=== PATIENT | female | born 1955 | race Caucasian/White ===

== ENCOUNTER 2018-11-08 16:50 | Observation (INO) | payer MEDICARE ==
[~2018-11-08] VITALS: Ht 167.6 cm; Wt 57.8 kg
--- NOTE | 2018-11-08 16:54 | NUR ---
PT BROUGHT BACK IMMEDIATELY TO ROOM PER W/C
--- NOTE | 2018-11-08 17:08 | NUR ---
RADIOLOGY DEPT/CT ADVISED THAT I-STAT IS 0.[address] MAIER.
[2018-11-08 17:15] LABS: GFR > 60 ML/MIN (>=60 (CALC)); GFR FOR AFR.AMER. > 60 ML/MIN (>=60 (CALC)); HEMATOCRIT 40.6 % (37.0-47.0); HEMOGLOBIN 13.5 g/dl (12.0-16.0); IMMATURE GRANULOCYTES 0.2 % (0.0-5.0); MEAN CELL VOLUME 94.2 fL CALC (80.0-100.0); MEAN CORPUSCULAR HGB 31.3 pG CALC (26.0-32.0); MEAN CORPUSCULAR HGB CONC 33.3 g/L CALC (32.0-36.0); NEUT# 3.7 thou/uL (2.00-7.15); RED BLOOD COUNT 4.31 mill/uL (4.20-5.60)
[2018-11-08] MEDS ORDERED: XANAX0.5 MG PO (17:36)
[2018-11-08] MEDS ORDERED: LORTAB 1010 MG PO (17:36)
[2018-11-08] MEDS ORDERED: PAXIL40 MG PO (17:37)
[2018-11-08] MEDS ORDERED: CYMBALTA60 MG PO (17:37)
[2018-11-08] MEDS ORDERED: VENTOLIN H108 MCG/AC IN (17:38)
--- NOTE | 2018-11-08 17:40 | NUR ---
TOLERATED CT WELL MEDICATED ORDERED, WILL CONTINUE TO MONITOR
[2018-11-08 17:50] LABS: ANION GAP 15 (6-22 (CALC)); BUN 9 mg/dL (8-23); BUN/CREATININE RATIO 13 (12-20 (CALC)); CARBON DIOXIDE 27 mmol/l (22-30); CHLORIDE 104 mmol/l (95-108); CREATININE 0.7 mg/dL (0.5-1.0); GFR > 60 ML/MIN (>=60 (CALC)); GFR FOR AFR.AMER. > 60 ML/MIN (>=60 (CALC)); SODIUM 142 mmol/l (137-146)
--- NOTE | 2018-11-08 18:10 | NUR ---
PT REPORTS PAIN IN CHEST IS A 3/10 AND LEFT SIDED UPPER BACK PAIN IS 6/10. PT RESTING COMFORTABLY IN STRETCHER AND DENIES ANY NEEDS. PT AND AWARE OF PLAN OF CARE AND WAIT TIME. CALL [facility] WITHIN REACH.
--- NOTE | 2018-11-08 18:35 | NUR ---
PT REPORTS PAIN AND SWELLING TO LEFT 4TH DIGIT AND INABLILITY TO STRAIGHTEN IT X 2 DAYS. MD AWARE AND AT BEDSIDE TO EXAMINE.
--- NOTE | 2018-11-08 19:00 | NUR ---
PT REPORT TO DAVID CORTÉS.
--- NOTE | 2018-11-08 19:18 | NUR ---
IN ROOM INTRODUCED SELF TO PT. NO C/O.
--- NOTE | 2018-11-08 20:03 | NUR ---
PT. MADE AWARE OF PENDING ADMISSIOM, VERBALIZED UNDERSTANDING.
--- NOTE | 2018-11-08 20:31 | NUR ---
PT. PLACED IN HOSPITAL BED FOR COMFORT.
--- NOTE | 2018-11-08 20:35 | NUR ---
PT. MADE AWARE THAT THEIR ARE NO EMPTY ROOM UPSTARIS AND SHE WILL BE STAYING IN THE ED FOR A WHILE.
--- NOTE | 2018-11-08 21:00 | NUR ---
PT. GIVEN TURKEY SANDWICH AND DRINK.
--- NOTE | 2018-11-08 21:18 | NUR ---
PT. C/O CONT. BACK AND CHEST PAIN MD AWARE.
--- NOTE | 2018-11-08 21:29 | NUR ---
IV PAIN MED GIVEN PER MD ORDER.
--- NOTE | 2018-11-08 21:49 | NUR ---
PT. ATE 100% OF FOOD TRAY.
--- NOTE | 2018-11-08 22:00 | NUR ---
PT. MADE AWARE THAT THEIR ARE AVAILABLE BEDS UPSTAIRS NOW AND SHE WILL BE TRANSFERED UPSTAIRS SOON. VERBALIZED UNDERSTANDING.
--- NOTE | 2018-11-08 22:49 | NUR ---
Admission Note Report Given to: TESHA RN Transported by: Wheelchair X Stretcher Transported with: X Nurse Transporter X Patent IV [id number] X Well Puller
--- NOTE | 2018-11-08 22:50 | NUR ---
PT. TAKEN TO MS FLOOR VIA STRETCHER, NO C/O AT THIS TIME.
--- NOTE | 2018-11-08 23:00 | NUR ---
PT ARRIVED TO THE FLOOR ACCOMPANIED BY ED STAFF. PT ABULATED TO THE BATHROOM AND BACK INTO BED, WITH A STEADY GATE. TELE IN PLACE. ASSESSMENT COMPLETED. VS OBTAINED. RESPIRATIONS ARE EVEN AND UNLABORED ON RA LUNGS SOUND CLEAR/DIMINISHED. TELE IN PLACE. ORIENTED TO ROOM AND CALL [facility] SYSTEM. SAFETY PRECAUTIONS IN PLACE. WILL CONTINUE TO MONITOR.
[2018-11-08 23:16] VITALS: BP 124/66
--- NOTE | 2018-11-09 04:16 | NUR ---
PT RESTING IN BED WITH EYES CLOSED. NO S/S OF DISTRESS AT THIS. TELE IN PLACE. WILL CONTINUE TO MONITOR.
[2018-11-09 04:28] VITALS: BP 104/59
--- NOTE | 2018-11-09 07:00 | NUR ---
SHIFT CHANGE REPORT, PT AWAKE ALERT AND ORIENTED SITTING UP IN BED, C/O GENERALISED PAIN AND STATED SHE SURRERS FROM CHRONIC PAIN, IVF INFUSING, TELE MONITOR IN PLACE, WILL CONTINUE TO MONITOR AND ADDRESS CONCERNS, CALL [facility] IN REACH.
[2018-11-09 07:26] VITALS: BP 108/65
[2018-11-09 10:59] LABS: CHOLESTEROL HDL RATIO 3.8 (<4.4 (CALC))
[2018-11-09 11:00] VITALS: BP 110/75
--- NOTE | 2018-11-09 12:00 | NUR ---
ATE MEAL AND RELAXING IN BED, READY TO GO HOME AND AWAITING FINAL D/C INSTRUCTIONS, WILL CONTINUE TO MONITOR.
--- NOTE | 2018-11-09 14:09 | NUR ---
Discharge instructions given. Patient verbalizes understanding of same. Discharged in good condition via Ambulatory to Home with spouse. All belongings sent with pt.
== END 2018-11-09 14:00 | disposition home or self-care (01) ==
LOC: ED 16:50 → ED-I 19:31 → ED 19:48 → MS2 19:49 → ED-I 19:49 → MS2 22:13
PROVIDERS: Family Medicine; Nurse Practitioner Family; ADMIT Internal Medicine; ATTEND Internal Medicine
PROC: 3E0234Z Introduction of Serum, Toxoid and Vaccine into Muscle, Percutaneous Approach (ICD-10-PCS; principal; 2018-11-09)
DX: R07.9 Chest pain, unspecified (principal); J43.9 Emphysema, unspecified; M19.90 Unspecified osteoarthritis, unspecified site; F32.9 Major depressive disorder, single episode, unspecified; G89.4 Chronic pain syndrome; F41.1 Generalized anxiety disorder; Z87.891 Personal history of nicotine dependence; Z23 Encounter for immunization; R06.2 Wheezing; R06.02 Shortness of breath

== ENCOUNTER 2021-05-30 16:16 | Emergency (ER) | payer MEDICARE ==
[~2021-05-30] VITALS: Ht 167.6 cm; Wt 61.3 kg
[~2021-05-30 16:16] MED LIST: CYMBALTA60 MG PO; LORTAB 1010 MG PO; PAXIL40 MG PO; VENTOLIN H108 MCG/AC IN; XANAX0.5 MG PO
[2021-05-30 17:14] LABS: HEMATOCRIT 42.3 % (37.0-47.0); HEMOGLOBIN 14.1 g/dl (12.0-16.0); IMMATURE GRANULOCYTES 0.2 % (0.0-5.0); MEAN CELL VOLUME 93.2 fL CALC (80.0-100.0); MEAN CORPUSCULAR HGB 31.1 pG CALC (26.0-32.0); MEAN CORPUSCULAR HGB CONC 33.3 g/dL CAL (32.0-36.0); NEUT# 10.25 thou/uL (2.00-7.15); RED BLOOD COUNT 4.54 mill/uL (4.20-5.60); RED CELL DISTRI WIDTH 12.8 % (11.5-15.5)
[2021-05-30 17:16] LABS: URINE BILIRUBIN - DIPSTICK NEGATIVE (NEGATIVE); URINE BLOOD DIPSTICK MODERATE (NEGATIVE); URINE COLOR YELLOW; URINE GLUCOSE - DIPSTICK NEGATIVE (NEGATIVE); URINE KETONE 40 mg/dL (NEGATIVE); URINE LEUK ESTERASE NEGATIVE (NEGATIVE); URINE PROTEIN - DIPSTICK 30 mg/dL (NEG-TRACE); URINE SPECIFIC GRAVITY 1.025; URINE UROBILINOGEN - DIPSTICK 0.2 E.U./dL (0.2)
[2021-05-30 17:22] LABS: URINE NITRITE - DIPSTICK NEGATIVE (Negative)
[2021-05-30 17:29] LABS: URINE WBC 0-2 WBC/hpf (0-5)
[2021-05-30 17:34] LABS: ALBUMIN 4.8 g/dL (3.2-5.0); ALKALINE PHOSPHATASE 103 u/l (38-126); ANION GAP 16 (6-22 (CALC)); BILIRUBIN, TOTAL 0.6 mg/dL (0.0-1.4); BUN 7 mg/dL (8-23); BUN/CREATININE RATIO 12 (12-20 (CALC)); CARBON DIOXIDE 24 mmol/l (22-30); CHLORIDE 104 mmol/l (95-108); CREATININE 0.6 mg/dL (0.5-1.0); GFR > 60 ML/MIN (>=60 (CALC)); GFR FOR AFR.AMER. > 60 ML/MIN (>=60 (CALC)); LIPASE 36 u/l (23-300); POTASSIUM 3.6 mmol/l (3.5-5.1); SGOT/AST 29 u/l (9-36); SODIUM 140 mmol/l (137-146)
[2021-05-30 18:03] LABS: ACT PARTIAL THROMBO TIME 28.9 SECONDS (20.0-32.5); INTERNATIONAL NORMALIZED RATIO 0.9 RATIO (0.7-1.3); PROTHROMBIN TIME 9.9 SECONDS (9.0-12.5)
[2021-05-30 23:20] VITALS: BP 110/58
== END 2021-05-30 23:35 | disposition short-term general hospital (02) ==
LOC: ED 16:16
PROVIDERS: Family Medicine
DX: I21.4 Non-ST elevation (NSTEMI) myocardial infarction (principal); J43.9 Emphysema, unspecified; F17.200 Nicotine dependence, unspecified, uncomplicated
CPT/HCPCS: J1644; Q9967

== ENCOUNTER 2021-11-14 00:01 | Emergency (ER) | payer MEDICARE, MEDICAID ==
[~2021-11-14] VITALS: Ht 167.6 cm; Wt 57.0 kg
[2021-11-14] VITALS (9 sets, daily range): BP systolic 119–143; BP diastolic 70–92
[2021-11-14] MEDS ORDERED: ATORVASTATIN CA20 MG PO (00:45)
[2021-11-14] MEDS ORDERED: LOSARTAN POTASS25 MG PO (00:46)
[2021-11-14] MEDS ORDERED: TOPROL XL25 MG PO (00:47)
[2021-11-14] MEDS ORDERED: ASPIRIN LOW81 M1 PO (00:47)
[2021-11-14 00:55] LABS: HEMATOCRIT 41.6 % (37.0-47.0); HEMOGLOBIN 13.4 g/dl (12.0-16.0); IMMATURE GRANULOCYTES 0.1 % (0.0-5.0); MEAN CELL VOLUME 96.7 fL CALC (80.0-100.0); MEAN CORPUSCULAR HGB 31.2 pG CALC (26.0-32.0); MEAN CORPUSCULAR HGB CONC 32.2 g/dL CAL (32.0-36.0); NEUT# 3.31 thou/uL (2.00-7.15); RED BLOOD COUNT 4.3 mill/uL (4.20-5.60); RED CELL DISTRI WIDTH 12.3 % (11.5-15.5)
[2021-11-14 01:11] LABS: ALBUMIN 4.1 g/dL (3.2-5.0); ALKALINE PHOSPHATASE 95 u/l (38-126); ANION GAP 12 (6-22 (CALC)); BILIRUBIN, TOTAL 0.4 mg/dL (0.0-1.4); BUN 10 mg/dL (8-23); BUN/CREATININE RATIO 15 (12-20 (CALC)); CARBON DIOXIDE 26 mmol/l (22-30); CHLORIDE 108 mmol/l (95-108); CREATININE 0.7 mg/dL (0.5-1.0); GFR FOR AFR.AMER. > 60 ML/MIN (>=60 (CALC)); GFR OTHER RACES > 60 ML/MIN (>=60 (CALC)); LIPASE 38 u/l (23-300); POTASSIUM 3.2 mmol/l (3.5-5.1); SGOT/AST 21 u/l (9-36); SODIUM 143 mmol/l (137-146); TOTAL PROTEIN 6.9 g/dL (6.3-8.2)
[2021-11-14 01:18] LABS: ACT PARTIAL THROMBO TIME 32.5 SECONDS (20.0-32.5); PROTHROMBIN TIME 10.1 SECONDS (9.0-12.5)
== END 2021-11-14 03:00 | disposition home or self-care (01) ==
LOC: ED 00:01
DX: R07.9 Chest pain, unspecified (principal); F41.9 Anxiety disorder, unspecified; J43.9 Emphysema, unspecified; I42.9 Cardiomyopathy, unspecified; I25.2 Old myocardial infarction; F17.200 Nicotine dependence, unspecified, uncomplicated; Z20.822 Contact with and (suspected) exposure to COVID-19

== ENCOUNTER 2022-06-22 20:09 | Emergency (ER) | payer MEDICARE, MEDICAID ==
[2022-06-22] VITALS (7 sets, daily range): BP systolic 126–161; BP diastolic 76–88
[~2022-06-22] VITALS: Ht 167.6 cm; Wt 56.8 kg
[~2022-06-22 20:09] MED LIST changes: +ASPIRIN LOW81 M1 PO; +ATORVASTATIN CA20 MG PO; +LOSARTAN POTASS25 MG PO; +TOPROL XL25 MG PO
[2022-06-22 20:54] LABS: BASO% 0.5 % (0-3); EOS% 2.4 % (0-8); HEMATOCRIT 37.5 % (37.0-47.0); HEMOGLOBIN 12.7 g/dl (12.0-16.0); LYMPH% 39.2 % (15-41); MEAN CELL VOLUME 95.4 fL CALC (80.0-100.0); MEAN CORPUSCULAR HGB 32.3 pG CALC (26.0-32.0); MEAN CORPUSCULAR HGB CONC 33.9 g/dL CAL (32.0-36.0); MONO% 8.8 % (2-13); NEUT# 4.09 thou/uL (2.00-7.15); NEUT% 49.1 % (42-76); RED BLOOD COUNT 3.93 mill/uL (4.20-5.60); RED CELL DISTRI WIDTH 12.7 % (11.5-15.5)
[2022-06-22 21:05] LABS: ALBUMIN 4.4 g/dL (3.2-5.0); ALKALINE PHOSPHATASE 67 u/l (38-126); BUN 7 mg/dL (8-23); BUN/CREATININE RATIO 11 (12-20 (CALC)); CARBON DIOXIDE 26 mmol/l (22-30); CHLORIDE 108 mmol/l (95-108); CREATININE 0.7 mg/dL (0.5-1.0); GFR FOR AFR.AMER. > 60 ML/MIN (>=60 (CALC)); GFR OTHER RACES > 60 ML/MIN (>=60 (CALC)); SGOT/AST 32 u/l (9-36); SODIUM 138 mmol/l (137-146)
[2022-06-22 21:08] LABS: ANION GAP 8 (6-22 (CALC)); BILIRUBIN, TOTAL 0.6 mg/dL (0.0-1.4); POTASSIUM 3.9 mmol/l (3.5-5.1)
[2022-06-22] MEDS ORDERED: TAM75CAP PO (21:32)
== END 2022-06-22 21:40 | disposition home or self-care (01) ==
LOC: ED 20:09
PROVIDERS: Emergency Medicine
DX: J11.1 Influenza due to unidentified influenza virus with other respiratory manifestations (principal); R07.89 Other chest pain; I10 Essential (primary) hypertension; J43.9 Emphysema, unspecified; Z20.822 Contact with and (suspected) exposure to COVID-19